=== PATIENT | male | born 1990 | race Two or more races ===

== ENCOUNTER 2022-04-20 19:22 | Emergency (ER) | payer SELFPAY ==
[~2022-04-20] VITALS: Ht 180.3 cm; Wt 77.0 kg
[2022-04-20 19:57] VITALS: BP 128/74
== END 2022-04-20 20:01 | disposition left against medical advice (07) ==
LOC: M ED 19:22
DX: Z53.29 Procedure and treatment not carried out because of patient's decision for other reasons (principal)

== ENCOUNTER 2022-04-22 16:44 | Inpatient (IN) | payer BC, OTHER ==
[~2022-04-22] VITALS: Ht 180.3 cm; Wt 79.1 kg
[2022-04-22] MEDS ORDERED: ADDE1TAB14 PO (16:59)
[2022-04-22 19:14] LABS: HEMATOCRIT 43.5 % (42.0-52.0); HEMOGLOBIN 14.3 g/dl (13.5-17.5); MEAN CORPUSCULAR HEMOGLOBIN 30.8 pg (27.0-33.0); MEAN CORPUSCULAR HGB CONC 32.9 g/dl (32.0-36.5); MEAN CORPUSCULAR VOLUME 93.5 fl (80.0-96.0); PLATELET COUNT, AUTOMATED 216 10^3/uL (150-450); RED BLOOD COUNT 4.65 10^6/uL (4.30-6.10); WHITE BLOOD COUNT 6.6 10^3/uL (4.0-10.0)
[2022-04-22 19:48] LABS: AMPHETAMINES LEVEL URINE NEGATIVE (NEGATIVE); BARBITURATES URINE NEGATIVE (NEGATIVE); BENZODIAZEPINES URINE NEGATIVE (NEGATIVE); CANNABINOIDS URINE NEGATIVE (NEGATIVE); COCAINE METABOLITE URINE NEGATIVE (NEGATIVE); METHADONE URINE NEGATIVE (NEGATIVE); OPIATES URINE NEGATIVE (NEGATIVE); PHENCYCLIDINE URINE NEGATIVE (NEGATIVE)
[2022-04-22 19:53] LABS: RSV AMPLIFICATION NEGATIVE (NEGATIVE)
[2022-04-22 21:02] LABS: ACETAMINOPHEN LEVEL < 2.0 UG/ML (10.0-30.0); ALBUMIN 4.6 GM/DL (3.2-5.2); ALT/SGPT 35 U/L (12-78); BILIRUBIN,DIRECT 0.2 MG/DL (0.0-0.2); BILIRUBIN,TOTAL 0.8 MG/DL (0.2-1.0); BLOOD UREA NITROGEN 18 MG/DL (7-18); CARBON DIOXIDE LEVEL 27 MEQ/L (21-32); CHLORIDE LEVEL 106 MEQ/L (98-107); CREATININE FOR GFR 1.28 MG/DL (0.70-1.30); ETHYL ALCOHOL (ETHANOL) < 0.003 % (0.000-0.010); GLOMERULAR FILTRATION RATE > 60.0 (>60); GLUCOSE, FASTING 108 MG/DL (70-100); SALICYLATE LEVEL < 1.7 MG/DL (5.0-30.0); SODIUM LEVEL 140 MEQ/L (136-145); THYROID STIMULATING HORMONE 0.563 uIU/ML (0.358-3.740); TOTAL PROTEIN 8.4 GM/DL (6.4-8.2)
[2022-04-22] MEDS ORDERED: OLANZapine INTRAMUSCULAR 10MG VIAL IM ONE (22:25)
[2022-04-23] MEDS ORDERED: MED REC COMMENT (00:02)
[2022-04-23] MEDS ORDERED: ADDE10CA3 PO (00:02)
[2022-04-23] MEDS ORDERED: HOME MED LIST COMPLETE! XX SCH (00:05)
[2022-04-23] MEDS: AMPHETAMINE/DEXTROAMPHETAMINE 5 MG *ER* CAPSULE (ADDERALL XR) PO SCH (09:00)
[2022-04-24] MEDS: AMPHETAMINE/DEXTROAMPHETAMINE 5 MG *ER* CAPSULE (ADDERALL XR) PO SCH (10:48)
[2022-04-24] MEDS ORDERED: IBUPROFEN 400MG TAB PO PRN (15:15)
[2022-04-24] MEDS ORDERED: OLANZapine ORAL DISINTEGRATING TAB 5MG PO PRN (15:15)
[2022-04-24] MEDS ORDERED: traZODone 50 MG TAB PO PRN (15:15)
[2022-04-24] MEDS ORDERED: MOM 30ML SUSPENSION UDC PO PRN (15:15)
[2022-04-24] MEDS ORDERED: MAALOX 30 ML SUSP *UDC PO PRN (15:15)
[2022-04-24 16:42] VITALS: BP 144/93
[2022-04-24] MEDS: NICOTINE 14 MG/24 HR TRANSDERMAL TD SCH (18:44)
[2022-04-25] MEDS: NICOTINE 14 MG/24 HR TRANSDERMAL TD SCH (09:00)
[2022-04-25] MEDS: AMPHETAMINE/DEXTROAMPHETAMINE 5 MG *ER* CAPSULE (ADDERALL XR) PO SCH (11:57)
[2022-04-25 18:17] VITALS: BP 147/87
[2022-04-26 06:42] VITALS: BP 127/76
[2022-04-26] MEDS: AMPHETAMINE/DEXTROAMPHETAMINE 5 MG *ER* CAPSULE (ADDERALL XR) PO SCH (09:19)
[2022-04-26 18:18] VITALS: BP 155/85
[2022-04-27 06:21] VITALS: BP 138/80
[2022-04-27] MEDS: AMPHETAMINE/DEXTROAMPHETAMINE 5 MG *ER* CAPSULE (ADDERALL XR) PO SCH (09:09)
[2022-04-27 16:21] VITALS: BP 146/82
[2022-04-28 06:47] VITALS: BP 136/75
[2022-04-28] MEDS: AMPHETAMINE/DEXTROAMPHETAMINE 5 MG *ER* CAPSULE (ADDERALL XR) PO SCH (07:53)
[2022-04-28 16:14] VITALS: BP 141/81
[2022-04-29 06:34] VITALS: BP 136/60
[2022-04-29] MEDS: AMPHETAMINE/DEXTROAMPHETAMINE 5 MG *ER* CAPSULE (ADDERALL XR) PO SCH (08:25)
== END 2022-04-29 13:19 | disposition home or self-care (01) | DRG 751 ==
LOC: M ED 16:44 → M ED INP 04-24 15:12 → M PSY 04-24 16:42
PROVIDERS: ADMIT Psychiatry & Neurology Psychiatry; ATTEND Psychiatry & Neurology Psychiatry
DX: F29 Unspecified psychosis not due to a substance or known physiological condition (principal); F90.9 Attention-deficit hyperactivity disorder, unspecified type; F31.81 Bipolar II disorder; I10 Essential (primary) hypertension; Z63.0 Problems in relationship with spouse or partner; Z20.822 Contact with and (suspected) exposure to COVID-19; Z79.899 Other long term (current) drug therapy

== ENCOUNTER → 2023-09-06 | Outpatient (CLI) | payer BC, OTHER ==
[~2023-09-06] MED LIST: ADDE10CA3 PO; ADDE1TAB14 PO; MED REC COMMENT
[2023-09-06 14:39] LABS: BASO % 0.4 % (0.0-1.0); EOS # 0.1 10^3/uL (0.0-0.5); EOS % 1.7 % (0.0-3.0); HEMATOCRIT 43.7 % (42.0-52.0); HEMOGLOBIN 14.5 g/dl (13.5-17.5); LYMPH # 2.2 10^3/uL (1.5-5.0); MEAN CORPUSCULAR HEMOGLOBIN 30.9 pg (27.0-33.0); MEAN CORPUSCULAR HGB CONC 33.2 g/dl (32.0-36.5); MONO # 0.5 10^3/uL (0.0-0.8); MONO % 9.9 % (2.0-8.0); NEUTROPHILS # 2.4 10^3/uL (1.5-8.5); NEUTROPHILS % 45.2 % (36.0-66.0); PLATELET COUNT, AUTOMATED 164 10^3/uL (150-450); WHITE BLOOD COUNT 5.2 10^3/uL (4.0-10.0)
[2023-09-06 15:05] LABS: BILIRUBIN,DIRECT 0.2 MG/DL (<0.4); BILIRUBIN,TOTAL 0.4 MG/DL (0.3-1.2); TOTAL PROTEIN 7.1 G/DL (5.7-8.2)
== END ==
LOC: M PLALAB 09:18
PROVIDERS: ATTEND Internal Medicine Infectious Disease
DX: Z22.7 Latent tuberculosis (principal)